=== PATIENT | female | born 1995 | race Two or more races ===

== ENCOUNTER 2023-03-23 15:49 | Emergency (ER) | payer MEDICAID ==
[~2023-03-23] VITALS: Ht 160 cm; Wt 78.3 kg
[2023-03-23] MEDS ORDERED: RABIES VACCINE (PCEC)/PF 2.5 UNITS IM ONE (17:15)
[2023-03-23] MEDS ORDERED: AMOX500T86 PO (17:17)
[2023-03-23] MEDS ORDERED: NAPR-746 PO (17:17)
[2023-03-23 17:23] VITALS: BP 141/102; PULSE 108; RESP 16; TEMP 98.5; O2SAT 98
== END 2023-03-23 17:50 | disposition home or self-care (01) ==
LOC: ER 15:49
DX: S81.831A Puncture wound without foreign body, right lower leg, initial encounter (principal); S81.851A Open bite, right lower leg, initial encounter; Z79.2 Long term (current) use of antibiotics; Z79.899 Other long term (current) drug therapy; W54.0XXA Bitten by dog, initial encounter; Y93.89 Activity, other specified; Y92.89 Other specified places as the place of occurrence of the external cause; Y99.8 Other external cause status
CPT/HCPCS: 90471; 90675; 96372